=== PATIENT | female | born 1940 | race Two or more races ===

== ENCOUNTER 2016-12-11 21:02 | Inpatient (IN) | payer OTHER ==
[~2016-12-11] VITALS: Ht 149.9 cm; Wt 68.0 kg
[2016-12-11 22:09] LABS: Basophils # (auto) 0 uL; Basophils % (auto) 0.2 % (0.0-2.0); Eosinophils # (auto) 0.3 uL; Eosinophils % (auto) 3.9 % (0.0-7.0); Hematocrit 37.2 % (36.0-46.0); Hemoglobin 12.6 g/dL (12.2-16.2); Lymphocytes # (auto) 1.8 uL; Lymphocytes % (auto) 25.1 % (10.0-50.0); Mean Corpuscular Hemoglobin 28.9 pg (28.0-32.0); Mean Corpuscular Hgb Conc. 33.9 g/dL (32.0-36.0); Mean Corpuscular Volume 85.2 fL (80.0-100.0); Mean Platelet Volume 10.1 fL (7.4-10.4); Monocytes # (auto) 0.5 uL; Monocytes % (auto) 7.3 % (0.0-12.0); Neutrophils # (auto) 4.7 uL; Neutrophils % (auto) 63.5 % (37.0-80.0); Platelet Count (auto) 154 10^3/uL (140-450); Red Cell Distribution Width 13.8 % (11.6-16.0); White Blood Cell 7.4 10^3/uL (4.4-10.8)
[2016-12-11 22:36] LABS: INR 0.93 (0.9-1.15)
[2016-12-11 22:47] LABS: Albumin 3.4 g/dL (3.4-5.0); Alkaline Phosphatase 85 U/L (45-117); Anion Gap 8 (5-15); Aspartate Aminotransferase 17 U/L (15-37); BUN/Creatinine Ratio 16.5; Bilirubin, Total 0.3 mg/dL (0.2-1.0); Blood Urea Nitrogen 18 mg/dL (7-18); Calcium 8.8 mg/dL (8.5-10.1); Carbon Dioxide 28 mmol/L (21-32); Chloride 102 mmol/L (98-107); GFR African American 63 mL/min; GFR Non-African American 52 mL/min; Glucose 281 mg/dL (74-106); Magnesium 2.3 mg/dL (1.6-2.6); Potassium 4.1 mmol/L (3.5-5.1); Sodium 138 mmol/L (136-145); Total Protein 6.9 g/dL (6.4-8.2)
[2016-12-11 23:26] LABS: B-Type Natriuretic Peptide 50.3 pg/mL (0-100)
[2016-12-12] VITALS (7 sets, daily range): BP systolic 142–160; BP diastolic 65–84
[2016-12-12] MEDS ORDERED: cefTRIAXone 1GM/50ML D5W 50 ML IV ONE (01:45)
[2016-12-12] MEDS ORDERED: IPRATROPIUM BROM 0.5 MG/2.5ML INH SOL NEB ONE (01:45)
[2016-12-12] MEDS ORDERED: methylPREDNISolone SOD SUCC 125 MG/2 ML VL IV ONE (01:45)
[2016-12-12] MEDS ORDERED: ALBUTEROL SULF 2.5 MG/0.5ML(0.5%) NEB SOLN NEB ONE (01:45)
[2016-12-12] MEDS ORDERED: ACETAMINOPHEN 325 MG TAB PO PRN (02:45)
[2016-12-12] MEDS ORDERED: IPRATROPIUM BROM 0.5 MG/2.5ML INH SOL NEB PRN (02:45)
[2016-12-12] MEDS ORDERED: DEXTROSE (50%) 50ML SYRG IV PRN (02:45)
[2016-12-12] MEDS ORDERED: ONDANSETRON HCL 4 MG/2 ML VIAL IV PRN (02:45)
[2016-12-12] MEDS ORDERED: ALBUTEROL SULF 2.5 MG/0.5ML(0.5%) NEB SOLN NEB PRN (02:45)
[2016-12-12] MEDS ORDERED: TEMAZEPAM 15 MG CAP PO PRN (02:45)
[2016-12-12] MEDS ORDERED: HYDROcodone-ACET 5/325MG TAB PO PRN (02:45)
[2016-12-12] MEDS ORDERED: GLIP-116 PO (05:06)
[2016-12-12] MEDS ORDERED: INSLANTI SC (05:06)
[2016-12-12] MEDS ORDERED: OME20T PO (05:07)
[2016-12-12] MEDS: ACCU-CHEK COMFORT CURVE STRIP VI SCH ×4 (06:21→23:40)
[2016-12-12] MEDS: InsuLIN REG 1unit/0.01ml Soln (100units/ml) SC SCH ×4 (06:50→23:40)
[2016-12-12] MEDS: glipiZIDE 5 MG TAB PO SCH (06:51)
[2016-12-12] MEDS ORDERED: methylPREDNISolone SOD SUCC 125 MG/2 ML VL IV SCH (10:00)
[2016-12-12] MEDS: ENOXAPARIN SOD 40 MG/0.4 ML SYRINGE SC SCH (10:18)
[2016-12-12] MEDS: CARVEDILOL 3.125 MG TAB PO SCH ×2 (10:19→21:22)
[2016-12-12] MEDS: FAMOTIDINE 20 MG TAB PO SCH ×2 (10:20→21:23)
[2016-12-12] MEDS: ASPirin 81 mg TAB PO SCH (10:20)
[2016-12-12] MEDS: LOSARTAN POTASSIUM 25 MG TAB PO SCH (10:20)
[2016-12-12] MEDS ORDERED: LEVOFLOXACIN 500MG 100 ML IV ONE (20:15)
[2016-12-12] MEDS: ALBUTEROL SULF 2.5 MG/0.5ML(0.5%) NEB SOLN NEB SCH (20:20)
[2016-12-12] MEDS: PRAVASTATIN SODIUM 20 MG TAB PO SCH (21:22)
[2016-12-12] MEDS: methylPREDNISolone SOD SUCC 40 MG/ML VL IV SCH (21:23)
[2016-12-13 05:02] VITALS: BP 145/72
[2016-12-13 06:24] LABS: Basophils # (auto) 0 uL; Basophils % (auto) 0.1 % (0.0-2.0); Eosinophils # (auto) 0 uL; Hematocrit 37.4 % (36.0-46.0); Hemoglobin 12.6 g/dL (12.2-16.2); Lymphocytes # (auto) 1.7 uL; Mean Corpuscular Hemoglobin 28.5 pg (28.0-32.0); Mean Corpuscular Hgb Conc. 33.7 g/dL (32.0-36.0); Mean Corpuscular Volume 84.4 fL (80.0-100.0); Mean Platelet Volume 10.1 fL (7.4-10.4); Monocytes # (auto) 0.3 uL; Monocytes % (auto) 2.3 % (0.0-12.0); Neutrophils # (auto) 12.2 uL; Neutrophils % (auto) 85.6 % (37.0-80.0); Platelet Count (auto) 165 10^3/uL (140-450); Red Cell Distribution Width 13.8 % (11.6-16.0); White Blood Cell 14.3 10^3/uL (4.4-10.8)
[2016-12-13] MEDS: methylPREDNISolone SOD SUCC 40 MG/ML VL IV SCH ×3 (06:28→22:03)
[2016-12-13] MEDS: InsuLIN REG 1unit/0.01ml Soln (100units/ml) SC SCH ×3 (06:28→17:24)
[2016-12-13] MEDS: ACCU-CHEK COMFORT CURVE STRIP VI SCH ×3 (06:28→17:24)
[2016-12-13] MEDS: glipiZIDE 5 MG TAB PO SCH (06:29)
[2016-12-13 06:42] LABS: Potassium 4.5 mmol/L (3.5-5.1)
[2016-12-13 06:49] LABS: Albumin 3.4 g/dL (3.4-5.0); BUN/Creatinine Ratio 27.7; Calcium 8.9 mg/dL (8.5-10.1)
[2016-12-13] MEDS: IPRATROPIUM BROM 0.5 MG/2.5ML INH SOL NEB SCH ×4 (06:51→19:48)
[2016-12-13] MEDS: ALBUTEROL SULF 2.5 MG/0.5ML(0.5%) NEB SOLN NEB SCH ×4 (06:51→19:47)
[2016-12-13 07:06] LABS: Bilirubin, Total 0.5 mg/dL (0.2-1.0); Total Protein 6.5 g/dL (6.4-8.2)
[2016-12-13 09:00] VITALS: BP 142/69
[2016-12-13] MEDS: ENOXAPARIN SOD 40 MG/0.4 ML SYRINGE SC SCH (10:05)
[2016-12-13] MEDS: LEVOFLOXACIN 500MG 100 ML IV SCH (10:06)
[2016-12-13] MEDS: LOSARTAN POTASSIUM 25 MG TAB PO SCH (10:06)
[2016-12-13] MEDS: FAMOTIDINE 20 MG TAB PO SCH ×2 (10:07→22:04)
[2016-12-13] MEDS: ASPirin 81 mg TAB PO SCH (10:07)
[2016-12-13] MEDS: CARVEDILOL 3.125 MG TAB PO SCH ×2 (10:07→22:03)
[2016-12-13] MEDS ORDERED: INSULIN DETEMIR(LEVEMIR) 1unit/0.01ml Soln (100units/ml) SC ONE (11:00)
[2016-12-13 13:00] VITALS: BP 158/72
[2016-12-13] MEDS ORDERED: SODIUM CHLORIDE 0.9% 1,000 ML IV ONE (15:00)
[2016-12-13] MEDS ORDERED: IOHEXOL 350 MG/ML 100ML IJ ONE (15:12)
[2016-12-13 17:18] VITALS: BP 184/76
[2016-12-13] MEDS: cloNIDine HCL 0.1 MG TAB PO PRN (17:25)
[2016-12-13 22:00] VITALS: BP 147/71
[2016-12-13] MEDS: PRAVASTATIN SODIUM 20 MG TAB PO SCH (22:04)
[2016-12-14] MEDS: ACCU-CHEK COMFORT CURVE STRIP VI SCH ×2 (00:17→06:19)
[2016-12-14] MEDS: InsuLIN REG 1unit/0.01ml Soln (100units/ml) SC SCH ×2 (00:18→06:20)
[2016-12-14 05:32] VITALS: BP 134/58
[2016-12-14] MEDS: methylPREDNISolone SOD SUCC 40 MG/ML VL IV SCH (06:19)
[2016-12-14] MEDS: glipiZIDE 5 MG TAB PO SCH (06:20)
[2016-12-14] MEDS ORDERED: INSULIN DETEMIR(LEVEMIR) 1unit/0.01ml Soln (100units/ml) SC SCH (07:00)
[2016-12-14 07:11] LABS: BUN/Creatinine Ratio 28.4; Calcium 8.8 mg/dL (8.5-10.1); Potassium 3.9 mmol/L (3.5-5.1)
[2016-12-14] MEDS: ALBUTEROL SULF 2.5 MG/0.5ML(0.5%) NEB SOLN NEB SCH ×2 (07:13)
[2016-12-14] MEDS: IPRATROPIUM BROM 0.5 MG/2.5ML INH SOL NEB SCH ×2 (07:13)
[2016-12-14] MEDS: cloNIDine HCL 0.1 MG TAB PO PRN (08:13)
[2016-12-14 08:39] VITALS: BP 164/75
[2016-12-14] MEDS: ASPirin 81 mg TAB PO SCH (09:59)
[2016-12-14] MEDS: LEVOFLOXACIN 500MG 100 ML IV SCH (09:59)
[2016-12-14] MEDS: FAMOTIDINE 20 MG TAB PO SCH (09:59)
[2016-12-14] MEDS: LOSARTAN POTASSIUM 25 MG TAB PO SCH (10:00)
[2016-12-14] MEDS: CARVEDILOL 3.125 MG TAB PO SCH (10:00)
[2016-12-14] MEDS: ENOXAPARIN SOD 40 MG/0.4 ML SYRINGE SC SCH (10:00)
[2016-12-14 11:00] VITALS: BP 164/75
[2016-12-14 12:52] VITALS: BP 114/69
== END 2016-12-14 13:00 | disposition home or self-care (01) | DRG 191 ==
LOC: ER 21:05 → OVERFLOW 21:06 → WEST WING 12-12 03:40
PROVIDERS: ADMIT Nurse Practitioner; ATTEND Internal Medicine
DX: J44.1 Chronic obstructive pulmonary disease with (acute) exacerbation (principal); J45.901 Unspecified asthma with (acute) exacerbation; J44.0 Chronic obstructive pulmonary disease with (acute) lower respiratory infection; R07.9 Chest pain, unspecified; E11.9 Type 2 diabetes mellitus without complications; E78.5 Hyperlipidemia, unspecified; I11.9 Hypertensive heart disease without heart failure; J20.9 Acute bronchitis, unspecified; K21.9 Gastro-esophageal reflux disease without esophagitis; M46.90 Unspecified inflammatory spondylopathy, site unspecified; M47.9 Spondylosis, unspecified; T38.0X5A Adverse effect of glucocorticoids and synthetic analogues, initial encounter; Z82.49 Family history of ischemic heart disease and other diseases of the circulatory system; Z83.3 Family history of diabetes mellitus
CPT/HCPCS: 36415; 71020; 71275; 74176; 80048; 80053; 82962; 83036; 83735; 83880; 84484; 85025; 85379; 85610; 85730; 93005; 94640; 96365; 96375; G0378; J0696; J1815; J1956

== ENCOUNTER 2017-10-07 10:12 | Emergency (ER) | payer OTHER, MEDICAID ==
[~2017-10-07] VITALS: Ht 160 cm; Wt 78.5 kg
[~2017-10-07 10:12] MED LIST: GLIP-116 PO; INSLANTI SC; OME20T PO
[2017-10-07 11:13] LABS: Basophils # (auto) 0 uL; Basophils % (auto) 0.1 % (0.0-2.0); Eosinophils # (auto) 0.2 uL; Eosinophils % (auto) 2.5 % (0.0-7.0); Hematocrit 36.6 % (36.0-46.0); Lymphocytes # (auto) 1.8 uL; Lymphocytes % (auto) 20.5 % (10.0-50.0); Mean Corpuscular Hemoglobin 27.9 pg (28.0-32.0); Mean Corpuscular Hgb Conc. 32.8 g/dL (32.0-36.0); Monocytes # (auto) 0.6 uL; Monocytes % (auto) 7.2 % (0.0-12.0); Neutrophils # (auto) 6.1 uL; Neutrophils % (auto) 69.7 % (37.0-80.0); Platelet Count (auto) 161 10^3/uL (140-450); Red Cell Distribution Width 13.4 % (11.8-14.3); White Blood Cell 8.7 10^3/uL (4.4-10.8)
[2017-10-07 11:40] LABS: Urine Bacteria FEW /hpf (None Seen); Urine Blood Negative /uL (Negative); Urine Specific Gravity 1.005 (1.001-1.035); Urine WBC 7 /hpf (0 - 5)
[2017-10-07 12:02] LABS: Alanine Aminotransferase 14 U/L (13-56); Albumin 3.3 g/dL (3.4-5.0); Alkaline Phosphatase 88 U/L (45-117); Anion Gap 10 (5-15); Aspartate Aminotransferase 12 U/L (15-37); BUN/Creatinine Ratio 17.8; Bilirubin, Total 0.4 mg/dL (0.2-1.0); Blood Urea Nitrogen 21 mg/dL (7-18); Calcium 8.8 mg/dL (8.5-10.1); Carbon Dioxide 26 mmol/L (21-32); Chloride 102 mmol/L (98-107); GFR African American 57 mL/min; GFR Non-African American 47 mL/min; Glucose 259 mg/dL (74-106); Magnesium 2.4 mg/dL (1.6-2.6); Potassium 3.8 mmol/L (3.5-5.1); Sodium 138 mmol/L (136-145); Total Protein 6.9 g/dL (6.4-8.2)
[2017-10-07 12:45] VITALS: BP 138/74
== END 2017-10-07 14:24 | disposition home or self-care (01) ==
LOC: ER 10:12 → EDBD 10:12 → ER 14:24
DX: J20.9 Acute bronchitis, unspecified (principal); N39.0 Urinary tract infection, site not specified; I10 Essential (primary) hypertension; E11.9 Type 2 diabetes mellitus without complications; K21.9 Gastro-esophageal reflux disease without esophagitis; E78.5 Hyperlipidemia, unspecified; Z86.73 Personal history of transient ischemic attack (TIA), and cerebral infarction without residual deficits
CPT/HCPCS: 36415; 71046; 80053; 81001; 83735; 84484; 85025; 87804; 93005

== ENCOUNTER 2018-10-22 15:38 | Emergency (ER) | payer OTHER, MEDICAID ==
[~2018-10-22] VITALS: Ht 162.6 cm; Wt 70.3 kg
[2018-10-22 15:50] VITALS: BP 168/64
[2018-10-22] MEDS ORDERED: ACETAMINOPHEN 500 MG TAB PO ONE (20:15)
[2018-10-22] MEDS ORDERED: IBUPROFEN 800 MG TAB PO ONE (20:15)
== END 2018-10-22 21:45 | disposition home or self-care (01) ==
LOC: ER 15:38
DX: S20.212A Contusion of left front wall of thorax, initial encounter (principal); J06.9 Acute upper respiratory infection, unspecified; I25.10 Atherosclerotic heart disease of native coronary artery without angina pectoris; E11.9 Type 2 diabetes mellitus without complications; K21.9 Gastro-esophageal reflux disease without esophagitis; E78.5 Hyperlipidemia, unspecified; I10 Essential (primary) hypertension; Z98.61 Coronary angioplasty status; W01.198A Fall on same level from slipping, tripping and stumbling with subsequent striking against other object, initial encounter; Y93.89 Activity, other specified; Y99.8 Other external cause status; Y92.89 Other specified places as the place of occurrence of the external cause
CPT/HCPCS: 71046; 71101; 82962; 93005

== ENCOUNTER 2022-08-05 22:43 | Emergency (ER) | payer OTHER, MEDICAID ==
[~2022-08-05] VITALS: Ht 170.2 cm; Wt 70.0 kg
[~2022-08-05 22:43] MED LIST changes: +ALBU108A14 IN; +ASPI-543 PO; +CARV12.544 PO; +CYA100I IM; -GLIP-116 PO; +GLIP10TA9 PO; +LOSA-39 PO; +OLME20TA53 PO; +OME20GT GT; +PEN400T PO; +SITA100T7 PO
[2022-08-05] MEDS ORDERED: HYDROcodone-ACET 10/325MG TAB PO ONE (23:00)
[2022-08-06] MEDS ORDERED: HYDR-4798 PO (00:51)
[2022-08-06 02:00] VITALS: BP 127/59
== END 2022-08-06 02:09 | disposition home or self-care (01) ==
LOC: ER 22:43
DX: M54.42 Lumbago with sciatica, left side (principal); M54.41 Lumbago with sciatica, right side; E11.9 Type 2 diabetes mellitus without complications; K21.9 Gastro-esophageal reflux disease without esophagitis; E78.5 Hyperlipidemia, unspecified; I10 Essential (primary) hypertension